=== PATIENT | female | born 1980 | race Native Hawaiian/Other Pacific Islander ===

== ENCOUNTER 2017-06-01 20:18 | Observation (INO) | payer OTHER ==
[~2017-06-01] VITALS: Ht 157.5 cm; Wt 63.5 kg
[~2017-06-01 20:18] MED LIST: ROBAXIN500 MG PO
[2017-06-01 20:39] VITALS: BP 114/67; TEMP 98.4
[2017-06-01 20:58] LABS: PLATELET COUNT 355 K/uL (152-353)
[2017-06-01 21:06] LABS: POTASSIUM 3.4 mmol/L (3.6-5.2); SODIUM 139 mmol/L (136-145)
[2017-06-01 21:09] LABS: PARTIAL THROMBOPLASTIN TIME 26.3 SECONDS (24.5-33.6)
--- NOTE | 2017-06-01 22:01 | NUR ---
PATIENT RECEIVED FROM ER VIA WC. ALERT AND ORIENTED X 3. PATIENT GIVEN EDUCATION REGARDING BED CONTROLS AND CALL LIGHT. 20G SALINE LOCK TO LAC INTACT AND PATENT. FAMILY AT BEDSIDE.
[2017-06-02 00:16] VITALS: BP 119/71; TEMP 98.9; Ht 157.5 cm; Wt 63.5 kg
[2017-06-02 00:19] VITALS: BP 116/65; TEMP 98.3
[2017-06-02 04:00] VITALS: BP 75/57; TEMP 98
[2017-06-02 08:00] VITALS: BP 104/63; TEMP 98.3
[2017-06-02 12:00] VITALS: BP 108/46; TEMP 98.5
--- NOTE | 2017-06-02 16:15 | NUR ---
D/C INSTRUCTIONS GIVEN TO PT. NO RX PRESCRIBED. IV D/C'D L AC 20G CATH TIP INTACT.
== END 2017-06-02 16:17 | disposition home or self-care (01) ==
LOC: ED 20:18 → MED/SURG 21:30
DX: R07.89 Other chest pain (principal); I25.2 Old myocardial infarction; F41.8 Other specified anxiety disorders
CPT/HCPCS: 36415; 36591; 80053; 82550; 82553; 84484; 85027; 85610; 85730; 86318; 93005; 99220; 99283; 99284; G0378